=== PATIENT | male | born 1975 | race Two or more races ===

== ENCOUNTER 2017-07-22 19:43 | Emergency (ER) | payer OTHER ==
[~2017-07-22] VITALS: Ht 167.6 cm; Wt 68.0 kg
--- NOTE | 2017-07-22 19:45 | NUR ---
PT IS AN OTB, PT TOOK UNKNOWN SUBSTANCE AND WAS TAKEN DOWN POLICE, PT GIVEN 5MG VERSED. NAD NOTED, VSS, RESP EVEN AND UNLABORED, AT BS.
[2017-07-22] MEDS ORDERED: CT SWABBABLE VALVE TRANS SET 1 EA INFUS.SET MC ONE (19:58)
[2017-07-22] MEDS ORDERED: IOHEXOL-300 100 ML VIAL IV ONE (19:58)
[2017-07-22] MEDS ORDERED: IV NS 0.9% 250 ML IV ONE (19:58)
[2017-07-22] MEDS ORDERED: IV NS 0.9% 1,000 ML BAG IV ONE (20:00)
[2017-07-22 20:08] LABS: BASOPHILS % (AUTO) 0.6 % (0.0-2.0); EOSINOPHILS # (AUTO) 0.1 /CMM (0.0-0.7); EOSINOPHILS % (AUTO) 1.4 % (0.0-6.0); HEMATOCRIT 45 % (39-51); HEMOGLOBIN 15.5 g/dL (13.5-17.5); LYMPHOCYTES # (AUTO) 3.2 /CMM (0.8-4.8); LYMPHOCYTES % (AUTO) 40.8 % (20.0-44.0); MEAN CORPUSCULAR HEMOGLOBIN 28 PG (26.0-33.0); MEAN CORPUSCULAR HGB CONC 35 g/dl (31.0-36.0); MEAN CORPUSCULAR VOLUME 82 fL (80-96); MONOCYTES # (AUTO) 0.4 /CMM (0.1-1.30); MONOCYTES % (AUTO) 5.6 % (2.0-12.0); NEUTROPHILS # (AUTO) 4.1 /CMM (1.8-8.9); NEUTROPHILS % (AUTO) 51.6 % (43.0-81.0); PLATELET COUNT (AUTO) 232 /CMM (150-450); RDW COEFFICIENT OF VARIATION 12.8 (11.5-15.0); RED BLOOD CELL COUNT(AUTO) 5.46 MIL/uL (4.5-6.0); WHITE BLOOD COUNT (AUTO) 7.8 K/uL (4.3-11.0)
[2017-07-22] MEDS ORDERED: LORAZEPAM INJ 2 MG/ML VIAL ONE (20:15)
[2017-07-22] MEDS ORDERED: LORAZEPAM INJ 2 MG/ML VIAL IV ONE (20:30)
[2017-07-22 20:37] LABS: CALCIUM, SERUM 8.8 mg/dL (8.5-10.1); CARBON DIOXIDE 27 mmol/L (21-32); CHLORIDE 108 mmol/L (98-107); CREATININE 1.6 mg/dL (0.6-1.3); GLUCOSE 102 mg/dL (74-106); POTASSIUM 3.8 mmol/L (3.5-5.1); SODIUM SERUM 144 mmol/L (136-145); UREA NITROGEN, BLOOD 20 mg/dL (7-18)
[2017-07-22 20:43] LABS: ALANINE AMINOTRANSFERASE 94 U/L (12-78); ALCOHOL, BLOOD 259 mg/dL (0-0); ALKALINE PHOSPHATASE 106 U/L (46-116); ASPARTATE AMINOTRANSFERASE 33 U/L (15-37); BILIRUBIN,TOTAL 0.2 mg/dL (0.2-1.0); TOTAL PROTEIN, SERUM 8.1 g/dL (6.4-8.2)
[2017-07-22 20:44] LABS: INR 0.89 (0.87-1.13); PROTHROMBIN TIME 9.3 SECS (9.5-12.7)
[2017-07-22 20:45] LABS: TROPONIN I < 0.017 ng/mL (0.00-0.056)
--- NOTE | 2017-07-22 23:10 | NUR ---
RECEIVED CALL FROM Vira BYNUM SR, STATED HE IS PATIENT'S FATHER. CALL BACK PHONE # [phone]. HE ASKED TO BE NOTIFIED UPON PATIENT'S DISCHARGE. PLEASE CONFIRM WITH PATIENT ONCE HE IS AROUSABLE.
--- NOTE | 2017-07-23 00:16 | NUR ---
REPORT GIVEN TO ANJEL UNIT #[id number]
[2017-07-23 00:17] VITALS: BP 116/58
--- NOTE | 2017-07-23 00:18 | NUR ---
IV removed. Catheter intact and site benign. Pressure and 4x4 applied to site. No bleeding noted.
== END 2017-07-23 00:27 ==
LOC: ER 19:44
DX: F10.129 Alcohol abuse with intoxication, unspecified (principal); R45.1 Restlessness and agitation; R40.4 Transient alteration of awareness
CPT/HCPCS: 36415; 70450-TC; 71260-TC; 72125-TC; 80048-TC; 80076-TC; 84484-TC; 85025-TC; 85730-TC; A4606; G0480; J2060; J7050; Q9967; Z7610